=== PATIENT | male | born 1985 | race Caucasian/White ===

== ENCOUNTER 2020-12-24 19:05 | Emergency (ER) | payer BC ==
--- NOTE | 2020-12-24 19:53 | EDM.PDOC ---
ED HPI GENERAL MEDICAL PROBLEM - General Chief Complaint: Headache Stated Complaint: HEADACHE,NUMBNESS Time Seen by Provider: 12/24/20 19:30 Source of Information: Reports: Patient History Limitations: Reports: No Limitations - History of Present Illness INITIAL COMMENTS - FREE TEXT/NARRATIVE: Patient presents to the ED for right sided headache with blurry vision that started at 17:30 tonight. It was just prior to supper and then progressed to right hand numbness and speech difficulties. He does get migraines on the right side but this was different. He does get some vision changes with migranes but no speech or hand problems. They called his PCP and was told to drive here for CT scan. In the process of driving here in the last 1+ hour his symptoms are resolved. He did briefly have some left fingertip tingling but this resolved. at arrival to the hospital he has a residula mild headache, normal speech and no numbness. 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 No drug use, no alcohol and no smoking. Has not had covid and had his vaccines completed in May. he was diagnosed 8 days ago with diabetes due to fatigue and polydipsia, HIs blood glucose was 450 and his A1C was 10. Since then he is on metformin 500 mg bid and 5 units of long acting insulin at . glucose has been 140-180.no recent illness, chemical exposure or trauma Onset: Today, Sudden Duration: Resolved Prior to Arrival Location: Reports: Head, Face, Upper Extremity, Right Headache Pain Score (Numeric/FACES): 3 - Related Data Allergies Allergy/AdvReac Type Severity Reaction Status Date / Time No Known Allergies Allergy Verified 12/24/20 19:20 Home Meds: Home Meds metFORMIN [Glucophage] 500 mg PO BIDMEALS 12/24/20 [History] Past Medical History Endocrine/Metabolic History: Reports: Diabetes, Type II - Past Surgical History HEENT Surgical History: Reports: Tonsillectomy Social & Family History - Tobacco Use Tobacco Use Status *Q: Never Tobacco User - Alcohol Use Alcohol Use History: No Alcohol Use in Last Twelve Months: No - Recreational Drug Use Recreational Drug Use: No Drug Use in Last 12 Months: No ED ROS GENERAL - Review of Systems Review Of Systems: See Below HEENT: Reports: Vision Change Respiratory: Reports: No Symptoms Cardiovascular: Reports: No Symptoms GI/Abdominal: Reports: No Symptoms : Reports: No Symptoms Musculoskeletal: Reports: No Symptoms Skin: Reports: No Symptoms Neurological: Reports: Headache, Paresthesia (right hand and face), Trouble Speaking Psychiatric: Reports: No Symptoms Hematologic/Lymphatic: Reports: No Symptoms ED EXAM, NEURO - Physical Exam Exam: See Below Exam Limited By: No Limitations General Appearance: Alert, WD/WN, No Apparent Distress Eye Exam: Bilateral Eye: EOMI, Normal Inspection, PERRL Ears: Normal External Exam, Normal Canal, Hearing Grossly Normal, Normal TMs Nose: Normal Inspection, Normal Mucosa, No Blood Throat/Mouth: Normal Inspection, Normal Lips, Normal Teeth, Normal Voice, No Airway Compromise Head Exam: Atraumatic Neck: Normal Inspection, Supple, Non-Tender, Full Range of Motion Respiratory/Chest: No Respiratory Distress, Lungs Clear, Normal Breath Sounds, No Accessory Muscle Use, Chest Non-Tender Cardiovascular: Normal Peripheral Pulses, Regular Rate, Rhythm, No Edema, No Rub GI/Abdominal: Normal Bowel Sounds, Soft, Non-Tender, No Abnormal Bruit Neurological: Alert, Normal Mood/Affect, Normal Dorsiflexion, CN II-XII Intact, Normal Plantar Flexion, Normal Gait, No Motor/Sensory Deficits, Oriented x 3, Other (normal finger to nose, negative pronator drift. normal ROAM, normal heel to zambrano., no nystagmus) Extremities: Normal Inspection, Normal Range of Motion, No Pedal Edema Psychiatric: Normal Affect Skin Exam: Warm #1 Interpretation EKG Date: 12/24/20 Time: 20:34 Rhythm: NSR Rate (Beats/Min): 59 [place]: Normal P-Wave: Present QRS: Normal ST-T: Other (early repolarization) QT: Normal Comparison: NA - No Prior EKG Course - Vital Signs Last Recorded V/S: Last Vital Signs Temp 36.8 C 12/24/20 19:15 Pulse 62 12/24/20 19:15 Resp 17 12/24/20 19:15 BP 152/92 H 12/24/20 19:15 Pulse Ox 99 12/24/20 19:15 - Orders/Labs/Meds Orders: Active Orders 24 hr Category Date Time Status EKG Documentation Completion [RC] STAT Care 12/24/20 19:26 Active Labs: Laboratory Tests 12/24/20 12/24/20 12/24/20 Range/Units 19:46 19:46 19:52 WBC 6.8 (4.0-10.0) x10^3/uL RBC 4.41 L (4.5-6.0) x10^6/uL Hgb 13.5 L (14.0-18.0) g/dL Hct 38.4 L (40.0-52.0) % MCV 87.1 (78.0-93.0) fL MCH 30.6 (26.0-32.0) pg MCHC 35.2 (32.0-36.0) g/dL RDW Coeff of Shira 11.6 (10.0-15.0) % Plt Count 201 (130-400) x10^3/uL Immature Gran % (Auto) 0.00 (0.00-0.43) % Neut % (Auto) 56.6 (50.0-80.0) % Lymph % (Auto) 34.9 (25.0-50.0) % [place] % (Auto) 6.7 (2.0-11.0) % Eos % (Auto) 1.2 (0.0-4.0) % Baso % (Auto) 0.6 (0.2-1.2) % Neut # (Auto) 3.9 (1.8-7.7) x10^3/uL Lymph # (Auto) 2.4 (1.0-4.8) x10^3/uL [place] # (Auto) 0.5 (0.0-0.8) x10^3/uL Eos # (Auto) 0.1 (0.0-0.5) x10^3/uL Baso # (Auto) 0.0 (0.0-0.2) x10^3/uL Immature Gran # (Auto) 0.00 (0.00-0.07) x10^3/uL ESR 3 (0-15) mm/hr POC VBG pH 7.38 (7.33-7.43) pH POC VBG pCO2 45 (41-51) mmHg POC VBG pO2 25 mmHg POC VBG HCO3 27 (22-29) mmol/L POC Venous O2 Sat 43 % VBG Base Excess 2 (-(2)-3) mmol/L POC FiO2 21 Sodium 140 (136-145) mmol/L Potassium 4.0 (3.5-5.1) mmol/L Chloride 105 (98-107) mmol/L Carbon Dioxide 29 (21-32) mmol/L POC Venous Total CO2 27 (23-30) mmol/L Anion Gap 10.0 (5-15) mmol/L BUN 16 (7-18) mg/dL Creatinine 1.1 (0.70-1.30) mg/dL Est Cr Clr Drug Dosing 102.88 mL/min Estimated GFR (MDRD) > 60 Glucose 160 H (70-99) mg/dL Calcium 8.9 (8.5-10.1) mg/dL Corrected Calcium 8.9 (8.5-10.1) mg/dL Total Bilirubin 0.6 (0.2-1.0) mg/dL AST 29 (15-37) U/L ALT 40 (16-63) U/L Alkaline Phosphatase 80 (46-116) U/L Troponin I High Sens 12 (<=76) ng/L Total Protein 6.7 (6.4-8.2) g/dL Albumin 4.0 (3.4-5.0) g/dL Globulin 2.7 Albumin/Globulin Ratio 1.48 - Radiology Interpretation Free Text/Narrative:: ct head with no acute intracranial findings,. see report - Re-Assessments/Exams Free Text/Narrative Re-Assessment/Exam: 12/24/20 21:00 discussed normal neuro exam. offered evaluation, prefers this. Discussed normal exam possibility of TIA> if concerned start baby aspirin or two, follow up with pcp for dopplers and echocardiogram. Patient is close to his PCP and would call tomorrow. return for concerns. could be complex migraine also, resolved. Departure - Departure Time of Disposition: 20:54 Disposition: Home, Self-Care 01 Clinical Impression: Migraine, Paresthesia and pain of right extremity, Speech abnormality - Discharge Information *PRESCRIPTION DRUG MONITORING PROGRAM REVIEWED*: Not Applicable *COPY OF PRESCRIPTION DRUG MONITORING REPORT IN PATIENT ITZ: Not Applicable Instructions: Migraine Headache, [id number], Paresthesia, Transient Ischemic Attack, [id number] Referrals: John Torres NP [Primary Care Provider] - Forms: ED Department Discharge Additional Instructions: testing today was normal including a ct of the head and labs. If this is a concern for TIA< you need to have carotid doppler studies and echocardiogram done in the next 2 days. Suggestion to start taking 81-162 mg of aspirin a day. Close follow up with your physician is suggested for this. Sepsis Event Note (ED) - Evaluation Sepsis Screening Result: No Definite Risk - Focused Exam Vital Signs: Vital Signs Temp Pulse Resp BP Pulse Ox 12/24/20 19:15 36.8 C 62 17 152/92 H 99 - My Orders Last 24 Hours: My Active Orders 12/24/20 19:26 EKG Documentation Completion [RC] STAT - Assessment/Plan Last 24 Hours: My Active Orders 12/24/20 19:26 EKG Documentation Completion [RC] STAT
--- NOTE | 2020-12-24 19:58 | CT ---
[id number] CT/CT Head WO IV EXAM: CT Head WO IV CLINICAL DATA: RIGHT SIDED HEADACHE AND RIGHT HAND NUMBNESS COMPARISON STUDY: None FINDINGS: No intracranial hemorrhage, extra-axial fluid collection, mass, or acute ischemia. Soft tissues are unremarkable. Paranasal sinuses and mastoid air cells are clear. IMPRESSION: No acute intracranial findings. Charles Lennon DO 12/24/[id number] Thank you for allowing us to participate in the care of your patient.
[2020-12-24 20:11] LABS: CHLORIDE,CL 105 mmol/L (98-107); SODIUM,NA 140 mmol/L (136-145)
== END 2020-12-24 22:01 | disposition home or self-care (01) ==
LOC: VM.ED 19:05
DX: G43.909 Migraine, unspecified, not intractable, without status migrainosus (principal); M79.621 Pain in right upper arm; R20.2 Paresthesia of skin; R47.9 Unspecified speech disturbances; E11.9 Type 2 diabetes mellitus without complications; Z79.84 Long term (current) use of oral hypoglycemic drugs
CPT/HCPCS: 36415; 70450; 80053; 82803; 84484; 85025; 85652; 93005; 93010; 99284; 99284-25